=== PATIENT | male | born 1995 | race Caucasian/White ===

== ENCOUNTER → 2021-11-22 | Outpatient (CLI) | payer OTHER | END | disposition home or self-care (01) | LOC: LAB 07:46 | PROVIDERS: ATTEND Obstetrics & Gynecology | DX: Z20.818 Contact with and (suspected) exposure to other bacterial communicable diseases (principal); Z20.828 Contact with and (suspected) exposure to other viral communicable diseases ==

== ENCOUNTER 2025-04-03 20:13 | Emergency (ER) | payer OTHER ==
[~2025-04-03] VITALS: Ht 180.3 cm; Wt 95.3 kg
[2025-04-03] MEDS ORDERED: ACETAMINOPHEN 500 MG GEL..CAP PO ONE ×2 (21:00→21:44)
[2025-04-03] MEDS ORDERED: ENALAPRILAT DIHYDRATE 1.25 MG/ML VIAL IV ONE ×2 (21:00→21:44)
[2025-04-03] MEDS ORDERED: 0.9 % SODIUM CHLORIDE 1,000 ML IV SCH (21:00)
[2025-04-03] MEDS ORDERED: DEXAMETHASONE SODIUM PHOSPHATE 4 MG/ML VIAL IM ONE (21:00)
[2025-04-03] MEDS ORDERED: CEFTRIAXONE SODIUM 1,000 MG VIAL IM ONE (21:00)
[2025-04-03] MEDS ORDERED: CEFTRIAXONE SODIUM 1,000 MG VIAL ONE (21:44)
[2025-04-03] MEDS ORDERED: DEXAMETHASONE SODIUM PHOSPHATE 4 MG/ML VIAL ONE (21:44)
[2025-04-04 00:01] LABS: BASO % 0.4 % (0.1-1.2); EOS # 0.03 (0.04-0.54); EOS % 0.6 % (0.7-7.0); LYMPH # 0.85 (1.18-3.74); LYMPH % 16.3 % (19.3-53.1); MEAN PLATELET VOLUME 9.50 fl (9.4-12.4); MONO # 0.54 (0.24-0.82); MONO % 10.3 % (4.7-12.5); NEUT # 3.76 (1.56-6.13); NEUT % 72.0 % (34.0-71.1); RED CELL DISTRIBUTION WIDTH 11.9 % (11.6-14.4)
[2025-04-04] MEDS ORDERED: ACETAMINOPHEN 500 MG GEL..CAP PO ONE (00:10)
[2025-04-04 00:20] LABS: BUN CREA RATIO 23.0 (7.0-25.0); CREATININE SERUM 0.71 mg/dL (0.70-1.30); GFR 133.08; GLUCOSE FASTING 92.0 mg/dL (65-100); OSMOLALITY SERUM 278.0 MOSM/KG (275-295)
[2025-04-04 00:51] LABS: URINE APPEARANCE Turbid; URINE BILIRRUBIN Small (NEGATIVE); URINE BLOOD Negative; URINE COLOR Orange; URINE GLUCOSE Negative (NEGATIVE); URINE LEUKOCYTE Trace; URINE NITRATE Positive; URINE PROTEIN 30 (NEGATIVE); URINE UROBILINOGEN 1.0 E.U./dl
[2025-04-04 00:56] LABS: URINE BACTERIA 9.5 uL (0.0-1933); URINE EPITHELIAL CELLS 9.0 uL (0.0-38.8); URINE RBC 7.1 uL (0.0-20.8); URINE WBC 3.0 uL (0.0-23.2)
[2025-04-04 01:00] LABS: URINE CAST 1.02 uL (0.0-1.40); URINE KETONE 80 (NEGATIVE)
[2025-04-04 01:01] LABS: COVID-19 AG NEGATIVE (NEGATIVE)
[2025-04-04] MEDS ORDERED: KETO10TA2 PO (01:06)
[2025-04-04] MEDS ORDERED: BACTRIM DS TAB1 EACH PO (01:06)
[2025-04-04 02:25] LABS: URINE CRYSTALS MANY /HPF
== END 2025-04-04 01:36 | disposition home or self-care (01) ==
LOC: ER 20:14
PROVIDERS: Student in an Organized Health Care Education/Training Program
DX: B34.9 Viral infection, unspecified (principal); I86.1 Scrotal varices; N45.1 Epididymitis; J00 Acute nasopharyngitis [common cold]; I10 Essential (primary) hypertension